=== PATIENT | female | born 1950 | race Caucasian/White ===

== ENCOUNTER 2025-01-09 09:38 | Emergency (ER) | payer MEDICARE, BC, SELFPAY ==
--- NOTE | ~2025-01-09 | XR_ITS ---
PROCEDURE/PROCEDURES: XR hand RT min 3V HISTORY: Abdominal bite this morning. Laceration near fourth and fifth digits COMPARISON(S): None. TECHNIQUE: 3 radiographic images were submitted for interpretation. FINDINGS: Bones: There are no fractures seen. There are no destructive lesions or other lesions identified. Joints: There are no dislocations identified. There is no evidence of erosive arthropathy. Mild degenerative change IMPRESSION: No acute abnormalities are seen. Reviewed, dictated and finalized at location A. [employer]
[2025-01-09 09:56] VITALS: BP 111/65; PULSE 75; RESP 16; TEMP 36.4; O2SAT 97
--- NOTE | 2025-01-09 10:10 | ED.ANIMALBIT ---
HPI - Animal Bite General Chief Complaint: Animal Bite Stated Complaint: Dog Bite Time Seen by Provider: 01/09/25 09:50 Source: patient and RN notes reviewed Mode of arrival: ambulatory Limitations: no limitations History of Present Illness HPI narrative: 74-year-old female presents to [facility] complaining of dog bite to right hand. Patient said her dog was resource guarding and she put her hand down near her dog will when the dog bit her dorsal surface of her right hand. Patient reports a laceration to the dorsal hand along with couple puncture wounds on her right hand. Patient's tetanus up-to-date. Dog's rabies are up today. Patient denies any uncontrollable bleeding, numbness, tingling or any dysfunction with her right hand. Related Data Home Medications ?Medication ?Instructions ?Recorded ?Confirmed ?Last Taken ?Type celecoxib 200 mg capsule mg 01/09/25 Unknown History propranolol 80 mg capsule,24 mg PO 01/09/25 Unknown History hr,extended release sertraline 100 mg tablet mg 01/09/25 Unknown History Allergies Allergy/AdvReac Type Severity Reaction Status Date / Time No Known Allergies Allergy Verified 01/09/25 09:55 Review of Systems Review of Systems: CONSTITUTIONAL: Denies fever, chills, or sweats. EYES: Denies visual changes, redness, or discharge. ENT: Denies rhinorrhea, congestion, sore throat, or otalgia. CARDIOVASCULAR: Denies chest pain, palpitations, or edema. RESPIRATORY: Denies cough or dyspnea. GASTROINTESTINAL: Denies abdominal pain, nausea, vomiting, or diarrhea. GENITOURINARY: Denies dysuria or hematuria. SKIN: Denies rash or itching. Positive for laceration and dog bite. MUSCULOSKELETAL: Denies back pain, joint pain, or myalgia. NEUROLOGIC: Denies headache, numbness, tingling, or weakness. PSYCHIATRIC: Denies anxiety or depression. All other systems reviewed are negative, except as documented in HPI. PMFSH Comments At the time of my signature, I reviewed and agree with the nursing past medical, surgical, social, and family history. There is no relevant family history pertinent to the patient complaint. Exam Narrative: GENERAL: This is a well-nourished, well-developed adult, in no apparent distress. They are non ill-appearing, nontoxic appearing. HEAD: normocephalic, atraumatic. EYES: Sclera clear/white. Conjunctiva normal. Vision is grossly intact. Extraocular movements intact EARS: External ears normal, Hearing grossly intact. NOSE: External nose normal THROAT: Mucous membranes moist, NECK: Neck supple, CARDIOVASCULAR: Regular rate and rhythm RESPIRATORY: Respiratory rate normal, respiratory effort nonlabored, no respiratory distress SKIN: Right hand: There is a vertical laceration to the dorsal medial hand that resembles a T. what was part of the laceration is Measuring approximately 3 cm long. Other portions measuring approximately 1 cm long. It is unapproximated, fascia present. No tendons, ligaments, bones, or any other connective tissue visualized. There are smaller puncture wounds were to the distal in the patient's thumb. Smaller puncture wounds scattered to the patient's digits single puncture wound to the distal medial palm. Patient is able to flex and extend it against resistance at the PIP, DIP, MCP joint of all digits. Patient can feel me touch the tips of her fingers. Capillary refill less than 2 seconds. Sensation intact. Patient make a fist, thumbs-up sign, thumb sign, okay sign. Radial, ulnar, median nerve distribution intact. Neurovascular status intact distal injury. All nail bed and plates are intact. NEURO: awake, alert, and oriented to person, place and time. There were no obvious focal neurologic abnormalities. EXTREMITIES: No joint tenderness, effusion, or edema noted. Course Course Emergency Course: Portions of this record may have been created with voice recognition software Level of Care: Express Care Visit Vital Signs Vital signs: Vital Signs Temperature 97.5 F L 01/09/25 09:56 Pulse Rate 75 01/09/25 09:56 Respiratory Rate 16 01/09/25 09:56 Blood Pressure 111/65 01/09/25 09:56 Pulse Oximetry 97 01/09/25 09:56 Oxygen Delivery Room Air 01/09/25 09:56 Temperature 97.5 F L 01/09/25 09:56 Pulse Rate 75 01/09/25 09:56 Respiratory Rate 16 01/09/25 09:56 Blood Pressure 111/65 01/09/25 09:56 Pulse Oximetry 97 01/09/25 09:56 Oxygen Delivery Room Air 01/09/25 09:56 Reviewed Procedures Laceration Laceration 1: Date: 01/09/25 Time: 11:00 Site: hand Side (If applicable): right (Dorsal hand) Size (cm): 4 (T shaped) Description: linear (T shape) Depth: simple, single layer Local Anesthetic: lidocaine 1% Amount of anesthesia used (mL): 5 Pre-repair: wound explored, irrigated extensively, minor debridement and wound margins revised ====== Skin Level ====== Skin layer closed with: nylon Size (cm): 5-0 Number of sutures: 5 Technique: simple, interrupted (Loosely closed) ====== Subcutaneous Layer ====== ====== Muscle Layer ====== ====== Tendon Layer ====== Dressing: Triple antibiotic ointment, non adherent dressing. MDM - Animal Bite MDM Narrative Medical decision making narrative: X-ray of right hand shows no evidence of fracture or acute findings. Normal function of right hand, neurovascular status intact distal to the injury. Wound was cleansed extensively irrigated with sterile water prior to wound closure with approximately 300 cc of water. Successful laceration repair. Wound explored with no evidence of retained foreign body, fascia sheath visualized and intact, no tendon, ligaments, muscles, or any other connective tendon identified inside wound bed. All other wounds are irrigated extensively with sterile water and saline, other puncture wounds did not require wound closure, they are superficial wounds and approximated well. All wounds applied with triple antibiotic ointment and nonadherent dressings applied to the larger puncture wounds. Reassessment of hand function after wound closure remains unchanged, normal function of right hand, neurovascular status intact distal to the injury. Will Send patient home on Augmentin. Will refer patient hand specialist if any issues with hand function. Discussed physical exam findings. Advised supportive measures and signs/symptoms to go to the ER. Pt is appropriate for outpt treatment and f/u. Differential Diagnosis Differential diagnosis: Likely bite by animal, dog bite and rabies contact Critical Care Time Critical Care Time Critical Care Time: No Discharge Plan Discharge Clinical Impression: Dog bite Qualifiers: Encounter type: initial encounter Qualified Code(s): W54.0XXA - Bitten by dog, initial encounter Patient Disposition: Home Condition: Stable Instructions: Antibiotic Form, Animal Bite (ED), Care For Your Stitches (ED) Additional Instructions: The x-ray of your right hand is negative for any fractures or acute findings. Your sutures need to be removed in 7-10 days. ?Wear the dressing that has been applied for the first 24 hours to allow a scab to start forming. ?After this, you may remove and wash as normal with mild soap and water. ?Do NOT wash with peroxide or alcohol. ?You may apply bacitracin ointment to the wound daily. Do not soak or scrub the wound. Change the dressing daily, use a non adherent dressing such as the pain in the keep the wound dry and covered. Avoid dirty water to the wound is healed completely. Tylenol or Motrin as needed for pain. Follow instructions on the bottle. Take the Augmentin as directed. Look for signs of infection such as redness, swelling, fevers, body aches, chills, and becomes hot to touch, increased pain, or green or yellow drainage. ?Follow-up with PCP in 3-5 days for wound recheck. Follow-up with hand specialist if there is any concerns of hand dysfunction. Go To the ER for any signs of infection, or any serious concerns. Patient Language: Spanish Prescriptions: New amoxicillin-pot clavulanate 875-125 mg tablet 1 tablet PO Q12H 7 Days Qty: 14 0RF No Action celecoxib 200 mg capsule sertraline 100 mg tablet propranolol 80 mg capsule,extended release 24 hr PO Follow-up/Referrals: Jerri Sifuentes MD [Physician, Plastic Surgery] PHYSICIAN,AVIONICS TECHNICIAN [Primary Care Provider, Internal Medicine] Time of Disposition: 11:22
== END 2025-01-09 11:30 | disposition home or self-care (01) ==
DX: S61.451A Open bite of right hand, initial encounter (principal); W54.0XXA Bitten by dog, initial encounter; Z79.899 Other long term (current) drug therapy
CPT/HCPCS: 12002; 73130; 99203; G0463

== ENCOUNTER 2025-01-15 12:48 | Emergency (ER) | payer MEDICARE, BC, SELFPAY ==
--- NOTE | ~2025-01-15 | XR_ITS ---
EXAMINATION: XR hand RT 2V DATE: 01/15/2025 19:04 INDICATION: Animal bite near the fifth metacarpal TECHNIQUE: 3 views were obtained. COMPARISON: None. FINDINGS: Diffusely osteopenic bones. Soft tissue swelling on the dorsal aspect of the hand. No acute fracture is seen. IMPRESSION: 1. Soft tissue swelling. No acute bony lesion. Osteopenic bones. Reviewed, dictated and finalized at location [facility]
[2025-01-15 12:50] VITALS: BP 102/76; PULSE 69; RESP 18; TEMP 36.4; O2SAT 99
--- OUTSIDE RECORDS SUMMARY | 2025-01-15 15:14 | XMS_ITS ---
Author Organization Unknown ENCOUNTERS Encounter Performer Location Date Diagnosis Diagnosis Status Outpatient [address] [address] [id number] RTN *Note: Encounters from your own facility or health system may be excluded. Allergies, Adverse Reactions, Alerts Allergen Type Severity Identification Date Medications Name Date Quantity Days Supplied GPI Number
--- OUTSIDE RECORDS SUMMARY | 2025-01-15 15:14 | XMS_ITS | Clinical Summary ---
Author Organization [facility] Address [address] [place] [address] Care Team Providers Care Geodetic Survey Director Name Role Phone No, Physician Primary Care Provider [phone] Allergies Active Allergy Reactions Criticality Noted Date Comments Gluten Diarrhea,Stomach upset Low 04/22/2024 Cramps Medications propranolol LA (INDERAL LA) 80 mg 24 hr capsuleIndicati ons:Migraine Prevention Take 1 capsule (80 mg total) by mouth nightly 5 Active sertraline (ZOLOFT) 100 mg tabletIndicatio ns:Generalized Anxiety Disorder Take 1 tablet (100 mg total) by mouth nightly 5 Active traZODone (DESYREL) 100 mg tabletIndicatio ns:insomnia associated with depression Take 1 tablet (100 mg total) by mouth nightly 5 Active celecoxib (CeleBREX) 200 mg capsule Take 1 capsule (200 mg total) by mouth 2 (two) times a day 60 capsule 5 Active Additional Information Patient taking differently:200 mg oral 2 times daily,Indications: Pain, Informant: Self, Reported on 05/12/2024 multivitamin tabletIndicatio ns:Vitamin Deficiency Prevention Take 1 tablet by mouth nightly Active CALCIUM ORALIndications :supplement Take 1 tablet by mouth nightly Active cholecalciferol , vitamin D3, (VITAMIN D3 ORAL)Indication s:supplement Take 1 tablet by mouth nightly Active aspirin 81 mg enteric coated tabletIndicatio ns:prevention of thrombosis Take 1 tablet (81 mg total) by mouth nightly Active MAGNESIUM GLYCINATE ORALIndications :supplement Take 1 tablet by mouth nightly Active acetaminophen (TYLENOL) 500 mg tablet Take 2 tablets (1,000 mg total) by mouth every 6 (six) hours 60 tablet 1 5 Active cyclobenzaprine (FLEXERIL) 10 mg tabletIndicatio ns:S/P shoulder surgery Take 1 tablet (10 mg total) by mouth 3 (three) times a day as needed for muscle spasms 30 tablet 5 Active traMADoL (ULTRAM) 50 mg tabletIndicatio ns:S/P shoulder surgery Take 1 tablet (50 mg total) by mouth every 6 (six) hours as needed for pain 20 tablet 5 Active Active Problems Patient Care Coordination No te Formatting of this note migh t be different from the original. CITLALLI SWEET MD (PCP) [address] [place] [id number] Problem Noted Date Diagnosed Date Traumatic tear of right rotator cuff 05/01/2024 Encounters Date Type Department Care Team Description 12/09/2024 9:39 AM CDT - 12/09/2024 11:59 PM [place] [address] Screening mammogram, encounter for Discharge Disposition: Discharge to home or self care 11/25/2024 10:10 AM CDT Office Visit [facility] Orthopaedic Surgery [address] [place] [address] [address] [place] [address] Jose M Winters MD Traumatic tear of right rotator cuff, unspecified tear extent, subsequent encounter (Primary Dx); S/P shoulder surgery from Last 3 Months Immunizations Immunization Administration Dates Next Due Influenza, Trivalent, High D ose, Split, Preservative Free, Intramuscular 01/14/2024 Surgical History Surgery Date Site/Laterality Comments HYSTERECTOMY 02/26/1978 - 02/25/1979 scar tissue cleanup 2016 ROTATOR CUFF REPAIR 02/27/2004 - 02/25/2005 Left COLONOSCOPY x4, last one was 2021 Medical History Medical History Date Comments Anxiety Migraines Pneumonia Urinary tract infection Family History Medical History Relation Name Comments Breast cancer Mother Anesthesia problems Neg Hx Malig Hyperthermia Neg Hx Pseudochol deficiency Neg Hx Relation Name Status Comments Mother Social History Tobacco Use Types Packs/Day Years Used Date Smoking Tobacco: Never Passive Smoke Exposure: Never Smokeless Tobacco: Never Tobacco Cessation:Counseling Given: Not Answered AUDIT-C Answer Date Recorded Q1: How often do you have a drink containing alcohol? 4 or more times a week 05/12/2024 Q2: How many drinks containi ng alcohol do you have on a typical day when you are drinking? 1 or 2 Q3: How often do you have si x or more drinks on one occasion? Never 05/12/2024 Personal Safety Answer Date Recorded Have you ever been in or are you currently in a harmful physical or emotional relationship or is someone making you feel afraid or unsafe? Denies 05/12/2024 Comments No Sex and Gender Information Value Date Recorded Sex Assigned at Not on file Legal Sex Female 9:30 AM NURSE'S COMPANION Gender Identity Not on file Sexual Orientation Not on file Obstetrics History Para Term AB IAB SAB Ectopic Multiple Livin g Live Births 2 2 Date Outcome GA Total Labor Labor/2nd/3rd Weight Sex Type Anes PTL Yolanda A1 A5 Name Clin Last Filed Vital Signs Vital Sign Reading Time Taken Comments Blood Pressure 140/71 05/12/2024 12:10 PM CDT Pulse 64 05/12/2024 12:10 PM CDT Temperature 36.5 C (97.7 F) 05/12/2024 11:35 AM CDT Respiratory Rate 17 05/12/2024 12:10 PM CDT Oxygen Saturation 96% 05/12/2024 12:10 PM CDT Inhaled Oxygen Concentration - - Weight 58.5 kg (129 lb) 05/12/2024 8:15 AM CDT Height 152.4 cm (5') 05/12/2024 8:15 AM CDT Body Mass Index 25.19 05/12/2024 8:15 AM CDT Plan of Treatment Health Maintenance Due Date Last Done Comments Colon Cancer Screening-Colonoscopy 1950 Depression Screening 1950 Fall Risk Assessment 1950 Hepatitis C Screening 1950 Osteoporosis Screening-Bone Density Scan 1950 Hepatitis B Screening 02/13/1970 Well Visit 65+ 02/13/2017 Covid-19 Vaccine (2024-2 6 season) 2024 01/14/2024, 07/05/2021 Influenza Vaccine (#1) 2024 , 01/25/2023, 12/08/2020, Additional history exists Breast Cancer Screening-Mammogram 12/09/2025 12/09/2024, 01/31/2023, 01/31/2023, Additional history exists DTaP/Tdap/Td Vaccine (3 - Td or Tdap) 09/10/2034 09/10/2024, 09/02/2012, 06/15/1996 Zoster Vaccine Completed 03/11/2019, 12/27, 12/16/2013 Pneumococcal vaccine 65+ Completed 01/30/2020, 12/27 Medical Devices Implanted Type Area Ferry Engineer Device Identifier Shelf Expiration Date Model / Serial / Lot [employer] Suture Lockport Triple Loaded Knotless Fibertak 2.6mm Ar-[id number] - [id number] Implanted:Qty : 1 on 05/12/2024 by Jose M Winters MD at [facility] Right: Shoulder [employer] [id number] 02/25/2029 AR-[id number] / / [id number] [employer] Swivelock C 4.75mm 19.1mm Closed Eyelet Vent Lockport Suture Ar-[id number] - [id number] Implanted:Qty : 1 on 05/12/2024 by Jose M Winters MD at [facility] Right: Shoulder [employer] [id number] 10/27/2027 AR-2324BCC / / [id number] [employer] Swivelock C 4.75mm 19.1mm Closed Eyelet Vent Lockport Suture Ar-[id number] - [id number] Implanted:Qty : 1 on 05/12/2024 by Jose M Winters MD at [facility] Right: Shoulder [employer] [id number] 02/26/2028 AR-[id number] / / [id number] Procedures Procedure Name Priority Date/Time Associated Diagnosis Comments SCREENING MAMMOGRAM BILATERAL W JARON Schedule Routine, Read Routine (OP Routine) 12/09/2024 10:23 AM CDT Screening mammogram, encounter for from Last 3 Months Results * Screening Mammogram Bilateral W Jaron (12/09/2024 10:23 AM CDT) Anatomical Region Laterality Modality Breast Bilateral Mammography 12/26/2024 10:0 2 AM CDT Addenda Addendum by Evy De León MD on 12/26/2024 10:02 AM CDT Bilateral screening mammogram. Comparison is made with bilateral screening mammogram from a 01/31/2023, 12/13/2021 and 12/08/2020. CLINICAL HISTORY: Patient is 74-year-old female with presenting for screening mammogram. Patient has no complaints about the breasts currently. Patient's mother was diagnosed with breast cancer in the past. TECHNIQUE: Bilateral CC and MLO images of the breasts are obtained and reviewed with 2-D mammogram and trauma synthesis. FINDINGS: The breast parenchyma is composed of heterogeneously dense fibroglandular tissue which is seen mainly within the bilateral upper outer quadrants, a normal variant. Category C. Bilaterally, there are coarse of the benign calcifications mainly within the outer central breast. Elsewhere, bilaterally, there are no suspicious masses, microcalcifications in clusters, architectural distortions or asymmetric densities. IMPRESSION: BI-RADS 1, negative. Annual screening mammography is advised. Electronically signed by: vEy De León M.D. us Self Screening Mammogram IMG MAMMO PROCEDURES Ed ited Result - Final from Last 3 Months Insurance [facility] [employer] [employer] Care Teams Geodetic Survey Director Relationship Specialty Start Date End Date No, Physician PCP - General 05/20/24
[2025-01-15 19:23] LABS: Hematocrit 40.4 % (37.0-47.0); Hemoglobin 13.6 g/dL (12.0-15.0); Immature Granulocyte Percent A 0.2 % (0-0.5); Lymphocytes Absolute Auto 2.24 K/mm3 (0.9-3.2); Mean Corpuscular HGB Conc 33.7 g/dl (32-36); Mean Corpuscular Hemoglobin 31.6 pg (26-34); Mean Corpuscular Volume 94.0 fl (80-100); Nucleated Red Blood Cells Absolute Auto 0.000 K/mm3 (0.0-0.012); Nucleated Red Blood Cells Perc 0.0 % (0.0-0.2); Platelet Count Result 294 k/mm3 (150-375); Red Blood Count 4.30 M/mm3 (4.2-5.4); White Blood Count 9.2 K/mm3 (4.5-10.0)
[2025-01-15] MEDS: ACETAMINOPHEN 500 MG TABLET 1000 MG PO (19:29)
[2025-01-15] MEDS: KETOROLAC 30 MG/ML VIAL (*BKC) IM (19:31)
[2025-01-15 19:34] LABS: Alanine Aminotransferase 24 U/L (6-35); Albumin Level 4.6 g/dL (3.5-5.1); Alkaline Phosphatase 74 U/L (38-126); Anion Gap 9 mmol/L (4-12); Aspartate Amino Transferase 36 U/L (14-36); Bilirubin,Total 0.7 mg/dL (0.2-1.3); Blood Urea Nitrogen 17 mg/dL (7-17); CRP 0.8 mg/dL (<1.0); Calcium 9.5 mg/dL (8.4-10.2); Carbon Dioxide 22 mmol/L (22-30); Chloride 104 mmol/L (98-107); Estimated CRCL calculation 35 ml/min; Estimated Glomerular Filt Rate 57; Glucose 94 mg/dL (65-110); Potassium 4.1 mmol/L (3.4-5.0); Sodium 135 mmol/L (137-145); Total Protein 7.8 g/dL (6.3-8.2)
[2025-01-15] MEDS: SULFAMETHOXAZOLE/TRIMETHOPRIM 800/160 MG DS TABLET 1 TAB PO (20:13)
--- NOTE | 2025-01-15 20:38 | ED_ITS ---
HPI - General Adult General Chief complaint: Animal Bite Stated complaint: dog bite to right hand Time Seen by Provider: 01/15/25 18:39 History of Present Illness HPI narrative: 74-year-old female presenting after sustaining a dog bite to dorsum of right hand January 09. She was seen here in the ER and prescribed Augmentin and then instructed to follow-up with Plastic surgery. Patient saw Plastic surgery where they prescribed her Bactrim due to mild signs of infection. Patient reports Bactrim was never sent to the pharmacy and therefore never started. Sutured laceration to the dorsal hand with mild surrounding erythema, edema, and ecchymosis. Wound edges remain well-approximated without drainage or dehiscence. Neurovascular intact. Related Data Home Medications ?Medication ?Instructions ?Recorded ?Confirmed ?Last Taken ?Type celecoxib 200 mg capsule mg 01/09/25 Unknown History propranolol 80 mg capsule,24 mg PO 01/09/25 Unknown H istory hr,extended release sertraline 100 mg tablet mg 01/09/25 Unknown History Allergies Allergy/AdvReac Type Severity Reaction Status Date / Time amoxicillin (From Augmentin) AdvReac Intermediate Diarrhea Verified 01/13/25 15:45 clavulanic acid (From AdvReac Intermediate Diarrhea Verified 01/13/25 15:45 Augmentin) Review of Systems 2 Review of Systems: All systems reviewed & are unremarkable except as noted in HPI and below PMFSH Social History Social History (Updated 01/13/25 @ 15:46 by Clementina Gary) Social History: Caffeine-daily Smoking status: Never smoker Alcohol intake: current Alcohol use details: beer Substance use: never Substance use type: does not use Exam 2 Narrative: GENERAL: Well-appearing, well-nourished, and in no acute distress. HEAD: Normocephalic, atraumatic. EYES: PERRLA and EOMI. ENT: Nares clear, no rhinorrhea or epistaxis. Mucous membranes moist. Oropharynx without tonsillar hypertrophy exudate or other lesions. Bilateral TMs pearly vazquez non-bulging NECK: Supple. No adenopathy or masses. No carotid bruits or JVD CHEST: Clear to auscultation. No respiratory distress. No wheezes rales or rhonchi HEART: Regular rate and rhythm. No murmur heard. Normal peripheral pulses. ABDOMEN: Soft, nontender, nondistended, normal active bowel sounds. EXTREMITIES: Normal range of motion, strength 5/5. Dorsal right hand 6cm sutured laceration with mild surrounding erythema, edema, and ecchymosis. Wound edges remain well-approximated without drainage or dehiscence. Right arm has mild bruising up to mid forearm in process of healing. SKIN: Warm, dry, no rash. NEURO: No focal deficits. Alert and oriented x3. PSYCH: Normal mood and affect Course Vital Signs Vital signs: Vital Signs Temperature 97.6 F 01/15/25 12:50 Pulse Rate 69 01/15/25 12:50 Respiratory Rate 18 01/15/25 12:50 Blood Pressure 102/76 01/15/25 12:50 Pulse Oximetry 99 01/15/25 12:50 Oxygen Delivery Room Air 01/15/25 12:50 Temperature 98.7 F 01/15/25 21:02 Pulse Rate 88 01/15/25 21:02 Respiratory Rate 18 01/15/25 21:02 Blood Pressure 132/87 01/15/25 21:02 Pulse Oximetry 100 01/15/25 21:02 Oxygen Delivery Room Air 01/15/25 12:50 Medical Decision Making MDM Narrative Medical decision making narrative: 74-year-old female presenting after sustaining a dog bite to dorsum of right hand January 09. She was seen here in the ER and prescribed Augmentin and then instructed to follow-up with Plastic surgery. Patient saw Plastic surgery where they prescribed her Bactrim due to mild signs of infection. Patient reports Bactrim was never sent to the pharmacy and therefore never started. Dorsal right hand displays 6 cm sutured laceration with mild surrounding erythema, edema, and ecchymosis. Wound edges remain well-approximated without drainage or dehiscence. Neurovascular intact. Maintains good strength and ROM. Labs within normal limits including ESR/CRP. Patient's appears nontoxic with stable vitals. Administered ketorolac and acetaminophen for pain which improved patient's symptoms. Hand XR demonstrated soft tissue swelling, no acute bony lesion, and osteopenic bones. Will continue with outpatient antibiotic treatment of Bactrim and Flagyl. Administered 1st dose of both. Patient agrees with discussion and after shared medical decision making agrees with plan of care. All questions were answered to the patient's satisfaction. The patient is appropriate for outpatient treatment and follow-up. Given reasons to return. Medical Records Medical records reviewed: Yes I reviewed the external patient's medical records. Vital Signs Vital Signs: Vital Signs Temperature 97.6 F 01/15/25 12:50 Pulse Rate 69 01/15/25 12:50 Respiratory Rate 18 01/15/25 12:50 Blood Pressure 102/76 01/15/25 12:50 Pulse Oximetry 99 01/15/25 12:50 Oxygen Delivery Room Air 01/15/25 12:50 Temperature 98.7 F 01/15/25 21:02 Pulse Rate 88 01/15/25 21:02 Respiratory Rate 18 01/15/25 21:02 Blood Pressure 132/87 01/15/25 21:02 Pulse Oximetry 100 01/15/25 21:02 Oxygen Delivery Room Air 01/15/25 12:50 Lab Data Lab results reviewed: Yes I reviewed the patient's lab results. 01/15/25 19:09 01/15/25 19:09 Labs: Lab Results 01/15/25 Range/Units 19:09 WBC 9.2 (4.5-10.0) K/mm3 RBC 4.30 (4.2-5.4) M/mm3 Hgb 13.6 (12.0-15.0) g/dL Hct 40.4 (37.0-47.0) % MCV 94.0 (80-100) fl MCH 31.6 (26-34) pg MCHC 33.7 (32-36) g/dl RDW 12.6 (11.5-14.5) % Plt Count 294 (150-375) k/mm3 MPV 9.0 (7.4-10.4) fl Immature Gran % (Auto) 0.2 (0-0.5) % Neut % (Auto) 60.8 (45.5-73.1) % Lymph % (Auto) 24.4 (18.3-44.2) % Norman % (Auto) 10.5 H (2.6-8.5) % Eos % (Auto) 3.7 (0-4.4) % Baso % (Auto) 0.4 (0.2-1.2) % Lymph # (Auto) 2.24 (0.9-3.2) K/mm3 Norman # (Auto) 1.0 H (0.1-0.6) K/mm3 Eos # (Auto) 0.3 (0-0.3) K/mm3 Baso # (Auto) 0.0 (0.0-0.1) K/mm3 Abs Immat Gran (auto) 0.02 (0.00-0.031) K/mm3 Absolute Neuts (auto) 5.6 (1.3-6.7) K/mm3 Absolute Nucleated RBC 0.000 (0.0-0.012) K/mm3 Nucleated RBC % 0.0 (0.0-0.2) % ESR 19 (0-20) mm/hr Sodium 135 L (137-145) mmol/L Potassium 4.1 (3.4-5.0) mmol/L Chloride 104 (98-107) mmol/L Carbon Dioxide 22 (22-30) mmol/L Anion Gap 9 (4-12) mmol/L BUN 17 (7-17) mg/dL Creatinine 0.96 (0.7-1.0) mg/dL Estim Creat Clear Calc 35 ml/min Estimated GFR 57 L (59 - ) Glucose 94 (65-110) mg/dL Calcium 9.5 (8.4-10.2) mg/dL Total Bilirubin 0.7 (0.2-1.3) mg/dL AST 36 (14-36) U/L ALT 24 (6-35) U/L Alkaline Phosphatase 74 (38-126) U/L C-Reactive Protein 0.8 (<1.0) mg/dL Total Protein 7.8 (6.3-8.2) g/dL Albumin 4.6 (3.5-5.1) g/dL Imaging Data Attestation: I personally reviewed and interpreted this imaging study as follows: Radiologist's impression: ITS Impressions Hand X-Ray 01/15/25 19:05 IMPRESSION: 1. Soft tissue swelling. No acute bony lesion. Osteopenic bones. Discharge Plan Discharge Clinical Impression: Dog bite Patient Disposition: Home Condition: Stable Instructions: Antibiotic Form, Animal Bite (ED) Additional Instructions: Return to the ED or visit an urgent care or your PCP for follow-up and wound check/suture removal in 5-7 days. Return to the ED if you experience uncontrolled bleeding, fever, chills, pus-like drainage, or spreading redness/swelling/warmth surrounding the wound, uncontrolled vomiting, or any other symptoms that are concerning to you. Continue with same care instructions given by Plastic surgery. Take medications as prescribed. Rest, use ice/heat, take anti-inflammatories (Aleve, Ibuprofen, Naproxen, etc) or Tylenol as needed for pain. Patient Language: Palestinian Prescriptions: New metronidazole 500 mg tablet 500 mg PO TID Qty: 30 0RF sulfamethoxazole-trimethoprim [Bactrim DS] 800-160 mg tablet 1 tablet PO Q12H Qty: 20 0RF No Action celecoxib 200 mg capsule sertraline 100 mg tablet propranolol 80 mg capsule,extended release 24 hr PO Follow-up/Referrals: PHYSICIAN,LOSS PREVENTION RESEARCH ENGINEER [Primary Care Provider, Internal Medicine]
[2025-01-15 21:02] VITALS: BP 132/87; PULSE 88; RESP 18; TEMP 37.1; O2SAT 100
== END 2025-01-15 21:03 | disposition home or self-care (01) ==
DX: S61.451A Open bite of right hand, initial encounter (principal); M85.841 Other specified disorders of bone density and structure, right hand; W54.0XXA Bitten by dog, initial encounter
CPT/HCPCS: 36415; 73120; 80053; 85025; 85652; 86140; 96372; 99283; A9270; J1885